=== PATIENT | male | born 1945 | race Caucasian/White ===

== ENCOUNTER 2017-11-28 22:06 | Emergency (ER) | payer MEDICARE, BC ==
[2017-11-28] MEDS: SOD CHLORIDE 0.9% 1,000 ML IV (22:40)
[2017-11-28] MEDS: morphine 2 MG INJ IV (22:40)
[2017-11-28 22:46] LABS: ADD MAN DIFF? NO
[2017-11-28 22:48] LABS: BASOPHILS % 0.4 % (0.0-2.0); EOSINOPHILS # 0.1 10^3/ul (0.0-0.5); EOSINOPHILS % 0.9 % (0.0-7.0); HEMOGLOBIN 12.6 g/dl (14.0-18.0); LYMPHOCYTES # 1.6 10^3/ul (0.8-2.9); LYMPHOCYTES % 16.5 % (15.0-51.0); MEAN CORPUSCULAR HEMOGLOBIN 29.9 pg (29.0-33.0); MEAN CORPUSCULAR HGB CONC 33.2 g/dl (32.0-37.0); MEAN CORPUSCULAR VOLUME 90.3 fl (82.0-101.0); MEAN PLATELET VOLUME 9.9 fl (7.4-10.4); MONOCYTE # 0.9 10^3/ul (0.3-0.9); NEUTROPHIL # 7.1 10^3/ul (1.6-7.5); NEUTROPHILS % 72.6 % (39.0-77.0); PLATELET COUNT 257 10^3/UL (140-415); RED BLOOD COUNT 4.21 10^6/ul (4.70-6.10)
[2017-11-28 22:48] LABS: WHITE BLOOD COUNT 9.7 10^3/ul (4.8-10.8)
[2017-11-28 23:19] LABS: ALANINE AMINOTRANSFERASE 23 IU/L (13-69); ALBUMIN 3.7 g/dl (3.3-4.9); ALBUMIN/GLOBULIN RATIO 1.23; ALKALINE PHOSPHATASE 123 IU/L (42-121); ANION GAP 16 (8-16); ASPARTATE AMINO TRANSFERASE 17 IU/L (15-46); BILIRUBIN,INDIRECT 0.2 mg/dl (0-1.1); BILIRUBIN,TOTAL 0.2 mg/dl (0.2-1.3); BLOOD UREA NITROGEN 19 mg/dl (7-20); CALCIUM 9.5 mg/dl (8.4-10.2); CARBON DIOXIDE 28 mmol/L (21-31); CHLORIDE 107 mmol/L (97-110); CREATININE 0.66 mg/dl (0.61-1.24); GLUCOSE 168 mg/dl (70-220); LIPASE 12 U/L (23-300); POTASSIUM 4.6 mmol/L (3.5-5.1); SODIUM 146 mmol/L (135-144); TOTAL PROTEIN 6.7 g/dl (6.1-8.1)
[2017-11-29 00:27] LABS: ADD UMIC NO; UR ASCORBIC ACID NEGATIVE (NEGATIVE); UR BILIRUBIN (Dip) NEGATIVE (NEGATIVE); UR BLOOD (Dip) NEGATIVE (NEGATIVE); UR CLARITY CLEAR (CLEAR); UR COLOR STRAW (YELLOW); UR GLUCOSE (Dip) NEGATIVE (NEGATIVE); UR KETONES (Dip) NEGATIVE (NEGATIVE); UR LEUKOCYTE ESTERASE (Dip) NEGATIVE Leu/ul (NEGATIVE); UR NITRITE (Dip) NEGATIVE (NEGATIVE); UR SPECIFIC GRAVITY (Dip) 1.009 (1.003-1.030); UR TOTAL PROTEIN (Dip) NEGATIVE (NEGATIVE); UR UROBILINOGEN (Dip) NEGATIVE (NEGATIVE)
== END 2017-11-29 03:08 | disposition home or self-care (01) ==
LOC: E/R 22:06
DX: S09.90XA Unspecified injury of head, initial encounter (principal); I10 Essential (primary) hypertension; E11.9 Type 2 diabetes mellitus without complications; R51 Headache; W18.39XA Other fall on same level, initial encounter; Y92.89 Other specified places as the place of occurrence of the external cause
CPT/HCPCS: 36415; 70450; 71045; 72125; 80053; 81003; 83690; 85025; 93005; 96374; 99285-25

== ENCOUNTER 2017-12-24 21:17 | Inpatient (IN) | payer MEDICARE, BC ==
[2017-12-24] MEDS: SOD CHLORIDE 0.9% 1,000 ML IV (21:44)
[2017-12-24 21:49] LABS: ADD MAN DIFF? NO
[2017-12-24 21:55] LABS: WHITE BLOOD COUNT 6.8 10^3/ul (4.8-10.8)
[2017-12-24 21:55] LABS: BASOPHILS % 0.3 % (0.0-2.0); EOSINOPHILS # 0.1 10^3/ul (0.0-0.5); HEMOGLOBIN 12.3 g/dl (14.0-18.0); LYMPHOCYTES # 1.6 10^3/ul (0.8-2.9); LYMPHOCYTES % 24.1 % (15.0-51.0); MEAN CORPUSCULAR HGB CONC 33.2 g/dl (32.0-37.0); MEAN CORPUSCULAR VOLUME 90.2 fl (82.0-101.0); MEAN PLATELET VOLUME 9.6 fl (7.4-10.4); MONOCYTE # 0.8 10^3/ul (0.3-0.9); MONOCYTES % 12.4 % (0.0-11.0); NEUTROPHIL # 4.2 10^3/ul (1.6-7.5); NEUTROPHILS % 61.5 % (39.0-77.0); PLATELET COUNT 202 10^3/UL (140-415); RED CELL DISTRIBUTION WIDTH 13.8 % (11.5-14.5)
[2017-12-24] MEDS: OLANZAPINE (ODT) 5 MG TAB PO (21:56)
[2017-12-24 22:14] LABS: ALANINE AMINOTRANSFERASE 22 IU/L (13-69); ALBUMIN 3.8 g/dl (3.3-4.9); ALBUMIN/GLOBULIN RATIO 1.18; ALKALINE PHOSPHATASE 76 IU/L (42-121); ANION GAP 16 (8-16); ASPARTATE AMINO TRANSFERASE 19 IU/L (15-46); BILIRUBIN,INDIRECT 0.5 mg/dl (0-1.1); BILIRUBIN,TOTAL 0.5 mg/dl (0.2-1.3); BLOOD UREA NITROGEN 17 mg/dl (7-20); CALCIUM 9.8 mg/dl (8.4-10.2); CARBON DIOXIDE 27 mmol/L (21-31); CHLORIDE 107 mmol/L (97-110); CREATININE 0.72 mg/dl (0.61-1.24); GLUCOSE 97 mg/dl (70-220); POTASSIUM 3.9 mmol/L (3.5-5.1); SODIUM 146 mmol/L (135-144)
[2017-12-24 22:32] LABS: ACETAMINOPHEN < 10.0 ug/ml (10.0-30.0); SALICYLATE < 1.0 mg/dl (5.0-30.0)
[2017-12-24 22:33] LABS: ETHANOL < 10.0 mg/dl
[2017-12-24] MEDS ORDERED: ONDANSETRON 4 MG INJ IV (23:30)
[2017-12-24] MEDS ORDERED: ACETAMINOPHEN 325 MG TAB PO (23:30)
[2017-12-25] MEDS ORDERED: NACL 0.9% 3 ML SYG IV (00:30)
[2017-12-25] MEDS ORDERED: LORAZEPAM 0.5 MG TAB PO (00:30)
[2017-12-25] MEDS ORDERED: ALBUTEROL/IPRATROPIUM (NEB) 3 ML AMP HHN (00:30)
[2017-12-25] MEDS ORDERED: morphine 2 MG INJ IV (00:30)
[2017-12-25] MEDS ORDERED: ONDANSETRON 4 MG INJ IV (00:30)
[2017-12-25] MEDS ORDERED: GLUCOSE GEL 15 GRAM TUBE BUCCAL (01:00)
[2017-12-25] MEDS ORDERED: DEXTROSE 50% 50 ML SYRINGE IV ×2 (01:00)
[2017-12-25] MEDS ORDERED: GLUCAGON 1 MG INJ IM (01:00)
[2017-12-25] MEDS ORDERED: GLUCOSE GEL 15 GRAM TUBE PO ×2 (01:00)
[2017-12-25] MEDS: ACCU-CHEK XX (01:37)
[2017-12-25] MEDS: LORAZEPAM 2 MG INJ IV (03:12)
[2017-12-25 05:37] LABS: ADD MAN DIFF? NO
[2017-12-25 05:45] LABS: WHITE BLOOD COUNT 8.2 10^3/ul (4.8-10.8)
[2017-12-25 05:45] LABS: BASOPHILS % 0.4 % (0.0-2.0); EOSINOPHILS # 0.2 10^3/ul (0.0-0.5); EOSINOPHILS % 2.1 % (0.0-7.0); HEMATOCRIT 37.7 % (42.0-52.0); HEMOGLOBIN 12.4 g/dl (14.0-18.0); LYMPHOCYTES # 2.6 10^3/ul (0.8-2.9); MEAN CORPUSCULAR HEMOGLOBIN 30.3 pg (29.0-33.0); MEAN CORPUSCULAR HGB CONC 32.9 g/dl (32.0-37.0); MEAN CORPUSCULAR VOLUME 92.2 fl (82.0-101.0); MEAN PLATELET VOLUME 10.6 fl (7.4-10.4); MONOCYTE # 1.2 10^3/ul (0.3-0.9); MONOCYTES % 14.1 % (0.0-11.0); NEUTROPHIL # 4.3 10^3/ul (1.6-7.5); NEUTROPHILS % 51.7 % (39.0-77.0); PLATELET COUNT 177 10^3/UL (140-415); RED BLOOD COUNT 4.09 10^6/ul (4.70-6.10); RED CELL DISTRIBUTION WIDTH 13.9 % (11.5-14.5)
[2017-12-25 06:07] LABS: ALANINE AMINOTRANSFERASE 19 IU/L (13-69); ALBUMIN 3.8 g/dl (3.3-4.9); ALBUMIN/GLOBULIN RATIO 1.08; ALKALINE PHOSPHATASE 77 IU/L (42-121); ANION GAP 20 (8-16); ASPARTATE AMINO TRANSFERASE 23 IU/L (15-46); BILIRUBIN,INDIRECT 0.6 mg/dl (0-1.1); BILIRUBIN,TOTAL 0.6 mg/dl (0.2-1.3); BLOOD UREA NITROGEN 13 mg/dl (7-20); CALCIUM 9.6 mg/dl (8.4-10.2); CARBON DIOXIDE 25 mmol/L (21-31); CHLORIDE 110 mmol/L (97-110); CREATININE 0.67 mg/dl (0.61-1.24); GLUCOSE 89 mg/dl (70-220); POTASSIUM 3.5 mmol/L (3.5-5.1); SODIUM 151 mmol/L (135-144); TOTAL PROTEIN 7.3 g/dl (6.1-8.1)
[2017-12-25] MEDS: INSULIN ASPART [NOVOLOG] 3 ML PEN SC ×4 (08:15→22:00)
[2017-12-25] MEDS: LEVETIRACETAM 750 MG TAB PO (08:56)
[2017-12-25] MEDS: ESCITALOPRAM 10 MG TAB PO (08:56)
[2017-12-25] MEDS: CLOBETASOL 0.05% 15 GM CR TOP ×2 (08:57→21:40)
[2017-12-25] MEDS: SERTRALINE 50 MG TAB PO (08:57)
[2017-12-25] MEDS: INSULIN GLARGINE [LANtus] 3 ML PEN SC (08:58)
[2017-12-25] MEDS ORDERED: SERTRALINE 50 MG TAB PO (09:00)
[2017-12-25] MEDS: LEVETIRACETAM (100 MG/ML) 5ML CUP PO ×2 (09:54→21:35)
[2017-12-25] MEDS ORDERED: DIPHENHYDRAMINE 50 MG INJ IV (11:30)
[2017-12-25 12:20] LABS: ADD UMIC NO; UR ASCORBIC ACID NEGATIVE (NEGATIVE); UR BILIRUBIN (Dip) NEGATIVE (NEGATIVE); UR BLOOD (Dip) NEGATIVE (NEGATIVE); UR CLARITY CLEAR (CLEAR); UR COLOR YELLOW (YELLOW); UR GLUCOSE (Dip) NEGATIVE (NEGATIVE); UR KETONES (Dip) NEGATIVE (NEGATIVE); UR LEUKOCYTE ESTERASE (Dip) NEGATIVE Leu/ul (NEGATIVE); UR NITRITE (Dip) NEGATIVE (NEGATIVE); UR TOTAL PROTEIN (Dip) NEGATIVE (NEGATIVE); UR UROBILINOGEN (Dip) NEGATIVE (NEGATIVE)
[2017-12-25 12:34] LABS: CANNABINOIDS Negative (NEGATIVE)
[2017-12-25 12:43] LABS: AMPHETAMINE/METHAMPHETAMINE Negative (NEGATIVE); BARBITURATES Negative (NEGATIVE)
[2017-12-25 12:44] LABS: COCAINE Negative (NEGATIVE)
[2017-12-25 12:45] LABS: BENZODIAZEPINES Positive (NEGATIVE); OPIATES Positive (NEGATIVE)
[2017-12-25] MEDS: ONDANSETRON 4 MG TAB PO ×2 (13:18→21:34)
[2017-12-25] MEDS: ZINC SULFATE 220 MG CAP PO (13:18)
[2017-12-25] MEDS: ASCORBIC ACID 500 MG TAB PO ×2 (13:18→21:00)
[2017-12-25] MEDS: ACETAMINOPHEN 325 MG TAB PO ×2 (17:03→21:35)
[2017-12-25] MEDS: COLLAGENASE 5 GM (UD JAR) TOP (17:35)
[2017-12-25] MEDS: ATORVASTATIN 40 MG TAB PO (21:34)
[2017-12-25] MEDS: PREGABALIN 25 MG CAP PO (22:36)
[2017-12-26] MEDS: ACCU-CHEK XX (02:00)
[2017-12-26] MEDS: ONDANSETRON 4 MG TAB PO ×3 (05:35→22:00)
[2017-12-26 06:29] LABS: ADD MAN DIFF? NO
[2017-12-26 06:41] LABS: WHITE BLOOD COUNT 6.1 10^3/ul (4.8-10.8)
[2017-12-26 06:41] LABS: BASOPHILS % 0.5 % (0.0-2.0); EOSINOPHILS # 0.2 10^3/ul (0.0-0.5); EOSINOPHILS % 3.1 % (0.0-7.0); HEMATOCRIT 36.6 % (42.0-52.0); HEMOGLOBIN 12.2 g/dl (14.0-18.0); LYMPHOCYTES # 1.7 10^3/ul (0.8-2.9); LYMPHOCYTES % 28.1 % (15.0-51.0); MEAN CORPUSCULAR HEMOGLOBIN 30.2 pg (29.0-33.0); MEAN CORPUSCULAR HGB CONC 33.3 g/dl (32.0-37.0); MEAN CORPUSCULAR VOLUME 90.6 fl (82.0-101.0); MEAN PLATELET VOLUME 10.4 fl (7.4-10.4); MONOCYTE # 0.8 10^3/ul (0.3-0.9); MONOCYTES % 12.6 % (0.0-11.0); NEUTROPHIL # 3.4 10^3/ul (1.6-7.5); NEUTROPHILS % 55.2 % (39.0-77.0); PLATELET COUNT 180 10^3/UL (140-415); RED BLOOD COUNT 4.04 10^6/ul (4.70-6.10); RED CELL DISTRIBUTION WIDTH 13.8 % (11.5-14.5)
[2017-12-26 07:20] LABS: ALBUMIN 3.2 g/dl (3.3-4.9)
[2017-12-26 07:23] LABS: BLOOD UREA NITROGEN 10 mg/dl (7-20); CALCIUM 9.3 mg/dl (8.4-10.2); CARBON DIOXIDE 27 mmol/L (21-31); CHLORIDE 110 mmol/L (97-110); CREATININE 0.67 mg/dl (0.61-1.24); GLUCOSE 99 mg/dl (70-220); PHOSPHORUS 4.2 mg/dl (2.5-4.9); POTASSIUM 3.6 mmol/L (3.5-5.1)
[2017-12-26 07:57] LABS: ANION GAP 11 (8-16); MAGNESIUM 1.1 mg/dl (1.7-2.5); SODIUM 144 mmol/L (135-144)
[2017-12-26] MEDS: LEVETIRACETAM (100 MG/ML) 5ML CUP PO ×2 (08:04→21:14)
[2017-12-26] MEDS: CLOBETASOL 0.05% 15 GM CR TOP ×2 (08:04→21:17)
[2017-12-26] MEDS: ESCITALOPRAM 10 MG TAB PO (08:05)
[2017-12-26] MEDS: ASCORBIC ACID 500 MG TAB PO ×2 (08:05→21:14)
[2017-12-26] MEDS: PREGABALIN 25 MG CAP PO ×2 (08:05→21:14)
[2017-12-26] MEDS: ZINC SULFATE 220 MG CAP PO (08:05)
[2017-12-26] MEDS: INSULIN ASPART [NOVOLOG] 3 ML PEN SC ×4 (08:05→21:00)
[2017-12-26] MEDS: INSULIN GLARGINE [LANtus] 3 ML PEN SC (08:06)
[2017-12-26] MEDS: COLLAGENASE 5 GM (UD JAR) TOP (08:09)
[2017-12-26] MEDS: ACETAMINOPHEN 1000MG/100ML IV 100 ML IVPB (11:40)
[2017-12-26] MEDS ORDERED: MAGNESIUM SULFATE 3 GM in DEXTROSE 5% 100 ML IVPB (12:30)
[2017-12-26] MEDS: MAGNESIUM SULFATE 1 GM/D5W 100 ML IVPB ×3 (12:36→15:46)
[2017-12-26] MEDS: SENNA TAB PO (21:00)
[2017-12-26] MEDS: DOCUSATE SODIUM 100 MG CAP PO (21:14)
[2017-12-26] MEDS: ATORVASTATIN 40 MG TAB PO (21:14)
[2017-12-27] MEDS: ACCU-CHEK XX ×2 (00:02→21:50)
[2017-12-27] MEDS: ONDANSETRON 4 MG TAB PO ×3 (06:00→21:41)
[2017-12-27] MEDS: ACETAMINOPHEN 1000MG/100ML IV 100 ML IVPB ×3 (06:44→22:27)
[2017-12-27 07:25] LABS: ADD MAN DIFF? NO
[2017-12-27 07:30] LABS: BASOPHILS % 0.4 % (0.0-2.0); EOSINOPHILS # 0.1 10^3/ul (0.0-0.5); EOSINOPHILS % 1.4 % (0.0-7.0); HEMATOCRIT 40.6 % (42.0-52.0); HEMOGLOBIN 13.6 g/dl (14.0-18.0); LYMPHOCYTES # 2.1 10^3/ul (0.8-2.9); LYMPHOCYTES % 24.2 % (15.0-51.0); MEAN CORPUSCULAR HEMOGLOBIN 30.2 pg (29.0-33.0); MEAN CORPUSCULAR HGB CONC 33.5 g/dl (32.0-37.0); MEAN PLATELET VOLUME 10.2 fl (7.4-10.4); MONOCYTE # 1.1 10^3/ul (0.3-0.9); MONOCYTES % 13.2 % (0.0-11.0); NEUTROPHIL # 5.2 10^3/ul (1.6-7.5); NEUTROPHILS % 60.6 % (39.0-77.0); PLATELET COUNT 194 10^3/UL (140-415); RED BLOOD COUNT 4.51 10^6/ul (4.70-6.10); RED CELL DISTRIBUTION WIDTH 14.1 % (11.5-14.5)
[2017-12-27 07:30] LABS: WHITE BLOOD COUNT 8.6 10^3/ul (4.8-10.8)
[2017-12-27 07:51] LABS: MAGNESIUM 1.5 mg/dl (1.7-2.5)
[2017-12-27 07:51] LABS: PHOSPHORUS 4.1 mg/dl (2.5-4.9)
[2017-12-27] MEDS: INSULIN GLARGINE [LANtus] 3 ML PEN SC (08:00)
[2017-12-27] MEDS: INSULIN ASPART [NOVOLOG] 3 ML PEN SC ×4 (08:15→21:00)
[2017-12-27] MEDS: ESCITALOPRAM 10 MG TAB PO (08:21)
[2017-12-27] MEDS: PREGABALIN 25 MG CAP PO ×2 (08:21→21:43)
[2017-12-27] MEDS: ZINC SULFATE 220 MG CAP PO (08:21)
[2017-12-27] MEDS: ASCORBIC ACID 500 MG TAB PO ×2 (08:22→21:42)
[2017-12-27] MEDS: DOCUSATE SODIUM 100 MG CAP PO ×2 (08:22→21:00)
[2017-12-27] MEDS: SENNA TAB PO ×2 (08:22→21:00)
[2017-12-27] MEDS: LEVETIRACETAM (100 MG/ML) 5ML CUP PO ×2 (08:23→21:41)
[2017-12-27] MEDS: CLOBETASOL 0.05% 15 GM CR TOP ×2 (08:28→21:45)
[2017-12-27] MEDS: COLLAGENASE 5 GM (UD JAR) TOP (08:28)
[2017-12-27 11:03] LABS: ANION GAP 14 (8-16); BLOOD UREA NITROGEN 8 mg/dl (7-20); CALCIUM 9.3 mg/dl (8.4-10.2); CARBON DIOXIDE 22 mmol/L (21-31); CHLORIDE 111 mmol/L (97-110); CREATININE 0.71 mg/dl (0.61-1.24); GLUCOSE 148 mg/dl (70-220); POTASSIUM 3.5 mmol/L (3.5-5.1); SODIUM 143 mmol/L (135-144)
[2017-12-27] MEDS: MAGNESIUM SULFATE 2 GM/50 ML 50 ML IVPB (11:56)
[2017-12-27] MEDS: MUPIROCIN 2% 22 GM OINT TOP ×2 (11:56→21:45)
[2017-12-27] MEDS: ATORVASTATIN 40 MG TAB PO (21:42)
[2017-12-28] MEDS: ACETAMINOPHEN 1000MG/100ML IV 100 ML IVPB (04:57)
[2017-12-28 06:24] LABS: ADD MAN DIFF? NO
[2017-12-28 06:35] LABS: WHITE BLOOD COUNT 7.9 10^3/ul (4.8-10.8)
[2017-12-28 06:35] LABS: BASOPHIL # 0.1 10^3/ul (0.0-0.1); BASOPHILS % 0.6 % (0.0-2.0); EOSINOPHILS # 0.2 10^3/ul (0.0-0.5); EOSINOPHILS % 2.9 % (0.0-7.0); HEMOGLOBIN 13.2 g/dl (14.0-18.0); LYMPHOCYTES # 2.2 10^3/ul (0.8-2.9); LYMPHOCYTES % 28.2 % (15.0-51.0); MEAN CORPUSCULAR HEMOGLOBIN 29.9 pg (29.0-33.0); MEAN CORPUSCULAR VOLUME 90.7 fl (82.0-101.0); MEAN PLATELET VOLUME 10.3 fl (7.4-10.4); MONOCYTES % 12.8 % (0.0-11.0); NEUTROPHIL # 4.3 10^3/ul (1.6-7.5); NEUTROPHILS % 54.9 % (39.0-77.0); PLATELET COUNT 177 10^3/UL (140-415); POSITIVE DIFF @See below; RED BLOOD COUNT 4.41 10^6/ul (4.70-6.10)
[2017-12-28] MEDS: ONDANSETRON 4 MG TAB PO ×3 (06:50→21:27)
[2017-12-28 07:15] LABS: MAGNESIUM 1.5 mg/dl (1.7-2.5)
[2017-12-28] MEDS: INSULIN ASPART [NOVOLOG] 3 ML PEN SC ×4 (08:15→21:00)
[2017-12-28] MEDS: DOCUSATE SODIUM 100 MG CAP PO ×2 (08:35→21:21)
[2017-12-28] MEDS: LEVETIRACETAM (100 MG/ML) 5ML CUP PO ×2 (08:35→21:20)
[2017-12-28] MEDS: ASCORBIC ACID 500 MG TAB PO ×2 (08:35→21:20)
[2017-12-28] MEDS: ESCITALOPRAM 10 MG TAB PO (08:35)
[2017-12-28] MEDS: SENNA TAB PO ×2 (08:36→21:20)
[2017-12-28] MEDS: ZINC SULFATE 220 MG CAP PO (08:36)
[2017-12-28] MEDS: PREGABALIN 25 MG CAP PO ×2 (08:38→21:21)
[2017-12-28] MEDS: INSULIN GLARGINE [LANtus] 3 ML PEN SC (08:40)
[2017-12-28] MEDS: MUPIROCIN 2% 22 GM OINT TOP ×2 (08:42→21:21)
[2017-12-28] MEDS: COLLAGENASE 5 GM (UD JAR) TOP (08:42)
[2017-12-28] MEDS: CLOBETASOL 0.05% 15 GM CR TOP ×2 (08:43→21:22)
[2017-12-28] MEDS: ACETAMINOPHEN 325 MG TAB PO ×3 (15:06→22:53)
[2017-12-28] MEDS: ATORVASTATIN 40 MG TAB PO (21:21)
[2017-12-29] MEDS: ACCU-CHEK XX (02:00)
[2017-12-29] MEDS: ONDANSETRON 4 MG TAB PO ×2 (05:34→15:20)
[2017-12-29] MEDS: HYDROCODONE/APAP (5/325) TAB PO ×3 (05:35→22:51)
[2017-12-29 06:18] LABS: ADD MAN DIFF? NO
[2017-12-29 06:29] LABS: BASOPHILS % 0.4 % (0.0-2.0); EOSINOPHILS # 0.2 10^3/ul (0.0-0.5); HEMATOCRIT 40.6 % (42.0-52.0); HEMOGLOBIN 13.6 g/dl (14.0-18.0); LYMPHOCYTES # 2.2 10^3/ul (0.8-2.9); LYMPHOCYTES % 26.9 % (15.0-51.0); MEAN CORPUSCULAR HEMOGLOBIN 30.5 pg (29.0-33.0); MEAN CORPUSCULAR HGB CONC 33.5 g/dl (32.0-37.0); MEAN PLATELET VOLUME 10.8 fl (7.4-10.4); MONOCYTE # 1.1 10^3/ul (0.3-0.9); MONOCYTES % 13.5 % (0.0-11.0); NEUTROPHIL # 4.5 10^3/ul (1.6-7.5); NEUTROPHILS % 55.8 % (39.0-77.0); PLATELET COUNT 167 10^3/UL (140-415); RED BLOOD COUNT 4.46 10^6/ul (4.70-6.10)
[2017-12-29] MEDS: INSULIN ASPART [NOVOLOG] 3 ML PEN SC ×4 (08:15→21:00)
[2017-12-29] MEDS: LEVETIRACETAM (100 MG/ML) 5ML CUP PO ×2 (08:18→21:01)
[2017-12-29] MEDS: ASCORBIC ACID 500 MG TAB PO ×2 (08:19→21:01)
[2017-12-29] MEDS: COLLAGENASE 5 GM (UD JAR) TOP (08:19)
[2017-12-29] MEDS: ESCITALOPRAM 10 MG TAB PO (08:19)
[2017-12-29] MEDS: ZINC SULFATE 220 MG CAP PO (08:19)
[2017-12-29] MEDS: PREGABALIN 25 MG CAP PO ×2 (08:19→21:01)
[2017-12-29] MEDS: CLOBETASOL 0.05% 15 GM CR TOP ×2 (08:20→21:03)
[2017-12-29] MEDS: MUPIROCIN 2% 22 GM OINT TOP ×2 (08:21→21:02)
[2017-12-29] MEDS: SENNA TAB PO ×2 (08:22→21:01)
[2017-12-29] MEDS: DOCUSATE SODIUM 100 MG CAP PO ×3 (08:22→21:01)
[2017-12-29] MEDS: INSULIN GLARGINE [LANtus] 3 ML PEN SC (08:33)
[2017-12-29] MEDS ORDERED: ONDANSETRON 4 MG TAB PO (15:30)
[2017-12-29] MEDS: ATORVASTATIN 40 MG TAB PO (21:01)
[2017-12-30] MEDS: ACCU-CHEK XX (01:10)
[2017-12-30 06:13] LABS: ADD MAN DIFF? NO
[2017-12-30 06:17] LABS: WHITE BLOOD COUNT 8.1 10^3/ul (4.8-10.8)
[2017-12-30 06:17] LABS: BASOPHIL # 0.1 10^3/ul (0.0-0.1); EOSINOPHILS # 0.3 10^3/ul (0.0-0.5); EOSINOPHILS % 3.1 % (0.0-7.0); HEMATOCRIT 39.5 % (42.0-52.0); HEMOGLOBIN 13.1 g/dl (14.0-18.0); LYMPHOCYTES # 2.3 10^3/ul (0.8-2.9); LYMPHOCYTES % 27.9 % (15.0-51.0); MEAN CORPUSCULAR HEMOGLOBIN 30.2 pg (29.0-33.0); MEAN CORPUSCULAR HGB CONC 33.2 g/dl (32.0-37.0); MEAN PLATELET VOLUME 10.5 fl (7.4-10.4); MONOCYTES % 12.9 % (0.0-11.0); NEUTROPHIL # 4.4 10^3/ul (1.6-7.5); NEUTROPHILS % 54.6 % (39.0-77.0); PLATELET COUNT 142 10^3/UL (140-415); POSITIVE DIFF @See below; RED BLOOD COUNT 4.34 10^6/ul (4.70-6.10)
[2017-12-30] MEDS: HYDROCODONE/APAP (5/325) TAB PO ×3 (06:21→23:58)
[2017-12-30] MEDS: INSULIN ASPART [NOVOLOG] 3 ML PEN SC ×4 (08:15→21:00)
[2017-12-30] MEDS: SENNA TAB PO ×2 (08:31→20:59)
[2017-12-30] MEDS: ESCITALOPRAM 10 MG TAB PO (08:31)
[2017-12-30] MEDS: PREGABALIN 25 MG CAP PO ×2 (08:31→20:59)
[2017-12-30] MEDS: ASCORBIC ACID 500 MG TAB PO ×2 (08:31→20:59)
[2017-12-30] MEDS: ZINC SULFATE 220 MG CAP PO (08:31)
[2017-12-30] MEDS: DOCUSATE SODIUM 100 MG CAP PO ×2 (08:31→20:59)
[2017-12-30] MEDS: LEVETIRACETAM (100 MG/ML) 5ML CUP PO ×2 (08:32→20:59)
[2017-12-30] MEDS: COLLAGENASE 5 GM (UD JAR) TOP (08:32)
[2017-12-30 08:38] LABS: BAND NEUTROPHILS #M 0.1 10^3/ul (0.0-0.6); BAND NEUTROPHILS % (M) 2 % (0-4); EOSINOPHILS % (M) 4 % (0-7); LYMPHOCYTES #M 1.9 10^3/ul (0.8-2.9); LYMPHOCYTES % (M) 24 % (15-51); MONOCYTE #M 0.4 10^3/ul (0.3-0.9); MONOCYTES % (M) 6 % (0-11); PLATELET ESTIMATE NORMAL; POLYCHROMASIA 1+ (0-0); REACTIVE LYMPHOCYTES #M 0.1 10^3/ul (0.0-0.0); REACTIVE LYMPHOCYTES% (M) 2 % (0-0); SEGMENTED NEUTROPHILS (M) % 62 % (39-77)
[2017-12-30] MEDS: MUPIROCIN 2% 22 GM OINT TOP ×2 (09:42→20:58)
[2017-12-30] MEDS: INSULIN GLARGINE [LANtus] 3 ML PEN SC (09:45)
[2017-12-30] MEDS: CLOBETASOL 0.05% 15 GM CR TOP ×2 (10:25→20:58)
[2017-12-30] MEDS: ATORVASTATIN 40 MG TAB PO (20:59)
[2017-12-31] MEDS: ACCU-CHEK XX (01:10)
[2017-12-31] MEDS: NAPROXEN 500 MG TAB PO (04:35)
[2017-12-31 05:57] LABS: ADD MAN DIFF? NO
[2017-12-31 06:00] LABS: WHITE BLOOD COUNT 7.8 10^3/ul (4.8-10.8)
[2017-12-31 06:00] LABS: BASOPHIL # 0.1 10^3/ul (0.0-0.1); BASOPHILS % 0.8 % (0.0-2.0); EOSINOPHILS # 0.2 10^3/ul (0.0-0.5); EOSINOPHILS % 2.7 % (0.0-7.0); HEMATOCRIT 37.1 % (42.0-52.0); HEMOGLOBIN 12.5 g/dl (14.0-18.0); LYMPHOCYTES # 2.1 10^3/ul (0.8-2.9); LYMPHOCYTES % 26.5 % (15.0-51.0); MEAN CORPUSCULAR HEMOGLOBIN 30.6 pg (29.0-33.0); MEAN CORPUSCULAR HGB CONC 33.7 g/dl (32.0-37.0); MEAN CORPUSCULAR VOLUME 90.7 fl (82.0-101.0); MEAN PLATELET VOLUME 10.7 fl (7.4-10.4); MONOCYTES % 13.4 % (0.0-11.0); NEUTROPHIL # 4.4 10^3/ul (1.6-7.5); PLATELET COUNT 140 10^3/UL (140-415); POSITIVE DIFF @See below; RED BLOOD COUNT 4.09 10^6/ul (4.70-6.10); RED CELL DISTRIBUTION WIDTH 14.1 % (11.5-14.5)
[2017-12-31] MEDS: INSULIN ASPART [NOVOLOG] 3 ML PEN SC ×4 (08:15→20:52)
[2017-12-31] MEDS: LEVETIRACETAM (100 MG/ML) 5ML CUP PO ×2 (08:51→20:36)
[2017-12-31] MEDS: MUPIROCIN 2% 22 GM OINT TOP ×2 (08:51→20:35)
[2017-12-31] MEDS: COLLAGENASE 5 GM (UD JAR) TOP (08:51)
[2017-12-31] MEDS: INSULIN GLARGINE [LANtus] 3 ML PEN SC (08:53)
[2017-12-31] MEDS: HYDROCODONE/APAP (5/325) TAB PO (08:53)
[2017-12-31] MEDS: ZINC SULFATE 220 MG CAP PO (08:54)
[2017-12-31] MEDS: ESCITALOPRAM 10 MG TAB PO (08:54)
[2017-12-31] MEDS: DEXAMETHASONE 2 MG TAB PO (08:54)
[2017-12-31] MEDS: ASCORBIC ACID 500 MG TAB PO ×2 (08:54→20:34)
[2017-12-31] MEDS: DOCUSATE SODIUM 100 MG CAP PO ×2 (08:54→20:41)
[2017-12-31] MEDS: SENNA TAB PO ×2 (08:54→20:34)
[2017-12-31] MEDS: PREGABALIN 25 MG CAP PO ×2 (08:54→20:35)
[2017-12-31] MEDS: CLOBETASOL 0.05% 15 GM CR TOP ×2 (08:55→20:36)
[2017-12-31] MEDS ORDERED: HYDROCODONE/APAP (5/325) TAB PO (11:00)
[2017-12-31] MEDS: DEXAMETHASONE 1 MG TAB PO ×2 (13:10→20:34)
[2017-12-31] MEDS: ATORVASTATIN 40 MG TAB PO (20:34)
== END 2017-12-31 22:05 | DRG 92 ==
LOC: MS2 23:23 → E/R 21:17
DX: G92 Toxic encephalopathy (principal); E87.0 Hyperosmolality and hypernatremia; I69.354 Hemiplegia and hemiparesis following cerebral infarction affecting left non-dominant side; C71.9 Malignant neoplasm of brain, unspecified; I10 Essential (primary) hypertension; E11.9 Type 2 diabetes mellitus without complications; G40.909 Epilepsy, unspecified, not intractable, without status epilepticus; F06.30 Mood disorder due to known physiological condition, unspecified; E78.00 Pure hypercholesterolemia, unspecified; F19.959 Other psychoactive substance use, unspecified with psychoactive substance-induced psychotic disorder, unspecified; T38.0X5A Adverse effect of glucocorticoids and synthetic analogues, initial encounter; T40.2X5A Adverse effect of other opioids, initial encounter; R45.1 Restlessness and agitation; Z79.4 Long term (current) use of insulin; Z88.2 Allergy status to sulfonamides; Z92.3 Personal history of irradiation
CPT/HCPCS: 36415; 70450; 80048; 80053; 80307; 81003; 82040; 82962; 83735; 84100; 85025; 87081; 97110; 97162; 97530; 99285-25

== ENCOUNTER 2017-12-31 10:15 | Inpatient (IN) | payer MEDICARE, BC ==
[2018-01-01] MEDS ORDERED: DEXTROSE 50% 50 ML SYRINGE IV ×2 (02:00)
[2018-01-01] MEDS ORDERED: GLUCAGON 1 MG INJ IM (02:00)
[2018-01-01] MEDS: ACCU-CHEK XX (02:00)
[2018-01-01] MEDS ORDERED: GLUCOSE GEL 15 GRAM TUBE BUCCAL (02:00)
[2018-01-01] MEDS ORDERED: GLUCOSE GEL 15 GRAM TUBE PO ×2 (02:00)
[2018-01-01] MEDS ORDERED: ONDANSETRON 4 MG INJ IV (02:00)
[2018-01-01] MEDS: ONDANSETRON 4 MG TAB PO (04:43)
[2018-01-01] MEDS: HYDROCODONE/APAP (5/325) TAB PO ×2 (04:44→14:05)
[2018-01-01] MEDS: ALBUTEROL 0.083% (NEB) 2.5 MG/3 ML AMP HHN ×3 (05:00→12:50)
[2018-01-01 05:28] LABS: ADD UMIC YES; UR ASCORBIC ACID 40 mg/dL (NEGATIVE); UR BACTERIA FEW /HPF (NONE SEEN); UR BILIRUBIN (Dip) NEGATIVE (NEGATIVE); UR BLOOD (Dip) NEGATIVE (NEGATIVE); UR CLARITY SLIGHTLY CLOUDY (CLEAR); UR COLOR YELLOW (YELLOW); UR GLUCOSE (Dip) NEGATIVE (NEGATIVE); UR KETONES (Dip) TRACE mg/dL (NEGATIVE); UR LEUKOCYTE ESTERASE (Dip) 2+ Leu/ul (NEGATIVE); UR MUCUS FEW /HPF (NONE SEEN); UR NITRITE (Dip) NEGATIVE (NEGATIVE); UR RBC 4 /HPF (0-5); UR SPECIFIC GRAVITY (Dip) 1.028 (1.003-1.030); UR TOTAL PROTEIN (Dip) NEGATIVE (NEGATIVE); UR UROBILINOGEN (Dip) 1+ mg/dL (NEGATIVE); UR WBC 66 /HPF (0-5)
[2018-01-01] MEDS: DEXAMETHASONE 1 MG TAB PO ×2 (06:26→18:30)
[2018-01-01 06:34] LABS: ADD MAN DIFF? NO
[2018-01-01 06:46] LABS: BASOPHILS % 0.2 % (0.0-2.0); EOSINOPHILS # 0.1 10^3/ul (0.0-0.5); EOSINOPHILS % 0.5 % (0.0-7.0); HEMATOCRIT 38.3 % (42.0-52.0); HEMOGLOBIN 12.9 g/dl (14.0-18.0); LYMPHOCYTES # 2.3 10^3/ul (0.8-2.9); LYMPHOCYTES % 24.6 % (15.0-51.0); MEAN CORPUSCULAR HEMOGLOBIN 30.1 pg (29.0-33.0); MEAN CORPUSCULAR HGB CONC 33.7 g/dl (32.0-37.0); MEAN CORPUSCULAR VOLUME 89.3 fl (82.0-101.0); MEAN PLATELET VOLUME 10.8 fl (7.4-10.4); MONOCYTE # 1.1 10^3/ul (0.3-0.9); MONOCYTES % 12.1 % (0.0-11.0); NEUTROPHIL # 5.8 10^3/ul (1.6-7.5); NEUTROPHILS % 62.1 % (39.0-77.0); PLATELET COUNT 157 10^3/UL (140-415); POSITIVE DIFF @See below; RED BLOOD COUNT 4.29 10^6/ul (4.70-6.10); RED CELL DISTRIBUTION WIDTH 13.9 % (11.5-14.5)
[2018-01-01 06:46] LABS: WHITE BLOOD COUNT 9.3 10^3/ul (4.8-10.8)
[2018-01-01 07:04] LABS: ALANINE AMINOTRANSFERASE 21 IU/L (13-69); ALBUMIN 3.3 g/dl (3.3-4.9); ALKALINE PHOSPHATASE 76 IU/L (42-121); ANION GAP 10 (8-16); ASPARTATE AMINO TRANSFERASE 17 IU/L (15-46); BILIRUBIN,INDIRECT 0.6 mg/dl (0-1.1); BILIRUBIN,TOTAL 0.6 mg/dl (0.2-1.3); BLOOD UREA NITROGEN 13 mg/dl (7-20); CALCIUM 9.1 mg/dl (8.4-10.2); CARBON DIOXIDE 24 mmol/L (21-31); CHLORIDE 111 mmol/L (97-110); CREATININE 0.66 mg/dl (0.61-1.24); GLUCOSE 127 mg/dl (70-220); POTASSIUM 3.5 mmol/L (3.5-5.1); SODIUM 141 mmol/L (135-144); TOTAL PROTEIN 6.3 g/dl (6.1-8.1)
[2018-01-01] MEDS ORDERED: ACCU-CHEK XX (07:05)
[2018-01-01] MEDS: INSULIN ASPART [NOVOLOG] 3 ML PEN SC ×4 (07:35→20:53)
[2018-01-01] MEDS: INSULIN GLARGINE [LANtus] 3 ML PEN SC (08:19)
[2018-01-01] MEDS: FOLIC ACID 1 MG TAB PO (08:21)
[2018-01-01] MEDS: DOCUSATE SODIUM 100 MG CAP PO ×2 (08:21→20:53)
[2018-01-01] MEDS: ASCORBIC ACID 500 MG TAB PO ×2 (08:21→20:32)
[2018-01-01] MEDS: ESCITALOPRAM 10 MG TAB PO (08:21)
[2018-01-01] MEDS: PREGABALIN 25 MG CAP PO ×2 (08:21→20:31)
[2018-01-01] MEDS: SENNA TAB PO ×2 (08:23→20:53)
[2018-01-01] MEDS: MULTIVITAMINS THERAPEUTIC TAB PO (08:23)
[2018-01-01] MEDS ORDERED: ASCORBIC ACID 500 MG TAB.CHEW PO (09:00)
[2018-01-01] MEDS: ZINC SULFATE 220 MG CAP PO (09:04)
[2018-01-01] MEDS ORDERED: PENDING SANTYL ORDER FOR WOUND CARE XX (09:30)
[2018-01-01 09:44] LABS: ANISOCYTOSIS 1+ (0-0); BAND NEUTROPHILS #M 0.1 10^3/ul (0.0-0.6); BAND NEUTROPHILS % (M) 2 % (0-4); GIANT THROMBO% (M) 1 % (0-0); LYMPHOCYTES #M 1.9 10^3/ul (0.8-2.9); LYMPHOCYTES % (M) 21 % (15-51); MONOCYTE #M 0.8 10^3/ul (0.3-0.9); MONOCYTES % (M) 9 % (0-11); PLATELET ESTIMATE NORMAL; POIKILOCYTOSIS 2+ (0-0); POLYCHROMASIA 3+ (0-0); REACTIVE LYMPHOCYTES #M 0.3 10^3/ul (0.0-0.0); REACTIVE LYMPHOCYTES% (M) 4 % (0-0); SEGMENTED NEUTROPHILS (M) % 64 % (39-77); SMUDGE%M 5 % (0-0)
[2018-01-01] MEDS: LEVETIRACETAM (100 MG/ML) 5ML CUP PO ×2 (14:00→20:31)
[2018-01-01] MEDS: BUSPIRONE 5 MG TAB PO ×2 (14:06→20:32)
[2018-01-01] MEDS: CLOBETASOL 0.05% 15 GM CR TOP ×2 (14:17→20:38)
[2018-01-01] MEDS ORDERED: ALBUTEROL 0.083% (NEB) 2.5 MG/3 ML AMP HHN (15:30)
[2018-01-01] MEDS: LORAZEPAM 0.5 MG TAB PO (18:37)
[2018-01-01] MEDS: ATORVASTATIN 40 MG TAB PO (20:42)
[2018-01-02] MEDS: ACCU-CHEK XX (02:00)
[2018-01-02] MEDS: HYDROCODONE/APAP (5/325) TAB PO (02:32)
[2018-01-02] MEDS: LORAZEPAM 0.5 MG TAB PO (03:01)
[2018-01-02] MEDS: DEXAMETHASONE 1 MG TAB PO ×2 (05:41→17:50)
[2018-01-02] MEDS: INSULIN ASPART [NOVOLOG] 3 ML PEN SC ×4 (07:35→21:00)
[2018-01-02] MEDS: INSULIN GLARGINE [LANtus] 3 ML PEN SC (07:54)
[2018-01-02] MEDS: SENNA TAB PO ×2 (08:07→21:00)
[2018-01-02] MEDS: BUSPIRONE 5 MG TAB PO ×2 (08:08→21:08)
[2018-01-02] MEDS: MULTIVITAMINS THERAPEUTIC TAB PO (08:08)
[2018-01-02] MEDS: PREGABALIN 25 MG CAP PO ×2 (08:08→21:08)
[2018-01-02] MEDS: ESCITALOPRAM 10 MG TAB PO (08:08)
[2018-01-02] MEDS: ASCORBIC ACID 500 MG TAB PO ×2 (08:08→21:08)
[2018-01-02] MEDS: ZINC SULFATE 220 MG CAP PO (08:08)
[2018-01-02] MEDS: FOLIC ACID 1 MG TAB PO (08:08)
[2018-01-02] MEDS: DOCUSATE SODIUM 100 MG CAP PO ×2 (08:08→21:00)
[2018-01-02] MEDS: CLOBETASOL 0.05% 15 GM CR TOP ×2 (08:09→21:10)
[2018-01-02] MEDS: LEVETIRACETAM (100 MG/ML) 5ML CUP PO ×2 (08:09→21:09)
[2018-01-02] MEDS: ATORVASTATIN 40 MG TAB PO (21:08)
[2018-01-03] MEDS: ACCU-CHEK XX (01:38)
[2018-01-03] MEDS: DEXAMETHASONE 1 MG TAB PO ×2 (05:56→17:31)
[2018-01-03] MEDS: PANTOPRAZOLE (EC) 40 MG TAB PO (05:56)
[2018-01-03] MEDS: INSULIN ASPART [NOVOLOG] 3 ML PEN SC ×4 (07:35→20:31)
[2018-01-03] MEDS: ESCITALOPRAM 10 MG TAB PO (08:18)
[2018-01-03] MEDS: FOLIC ACID 1 MG TAB PO (08:18)
[2018-01-03] MEDS: ZINC SULFATE 220 MG CAP PO (08:18)
[2018-01-03] MEDS: CLOBETASOL 0.05% 15 GM CR TOP ×2 (08:18→20:32)
[2018-01-03] MEDS: LEVETIRACETAM (100 MG/ML) 5ML CUP PO ×2 (08:18→20:29)
[2018-01-03] MEDS: BUSPIRONE 5 MG TAB PO ×2 (08:19→20:30)
[2018-01-03] MEDS: DOCUSATE SODIUM 100 MG CAP PO ×2 (08:19→20:29)
[2018-01-03] MEDS: PREGABALIN 25 MG CAP PO ×2 (08:19→20:30)
[2018-01-03] MEDS: SENNA TAB PO ×2 (08:19→20:30)
[2018-01-03] MEDS: MULTIVITAMINS THERAPEUTIC TAB PO (08:19)
[2018-01-03] MEDS: ASCORBIC ACID 500 MG TAB PO ×2 (08:19→20:30)
[2018-01-03] MEDS: INSULIN GLARGINE [LANtus] 3 ML PEN SC (08:21)
[2018-01-03] MEDS: ATORVASTATIN 40 MG TAB PO (20:30)
[2018-01-04] MEDS: ACCU-CHEK XX (02:00)
[2018-01-04] MEDS: DEXAMETHASONE 1 MG TAB PO ×2 (06:04→17:33)
[2018-01-04] MEDS: PANTOPRAZOLE (EC) 40 MG TAB PO (06:04)
[2018-01-04] MEDS: INSULIN ASPART [NOVOLOG] 3 ML PEN SC ×4 (07:31→21:11)
[2018-01-04] MEDS: INSULIN GLARGINE [LANtus] 3 ML PEN SC (07:34)
[2018-01-04] MEDS: LEVETIRACETAM (100 MG/ML) 5ML CUP PO ×2 (08:30→21:01)
[2018-01-04] MEDS: DOCUSATE SODIUM 100 MG CAP PO ×2 (08:31→21:03)
[2018-01-04] MEDS: CLOBETASOL 0.05% 15 GM CR TOP ×2 (08:31→21:03)
[2018-01-04] MEDS: PREGABALIN 25 MG CAP PO ×2 (08:31→21:03)
[2018-01-04] MEDS: ESCITALOPRAM 10 MG TAB PO (08:31)
[2018-01-04] MEDS: SENNA TAB PO ×2 (08:31→21:03)
[2018-01-04] MEDS: MULTIVITAMINS THERAPEUTIC TAB PO (08:31)
[2018-01-04] MEDS: ASCORBIC ACID 500 MG TAB PO ×2 (08:31→21:03)
[2018-01-04] MEDS: NAPROXEN 500 MG TAB PO ×2 (08:31→17:47)
[2018-01-04] MEDS: ZINC SULFATE 220 MG CAP PO (08:32)
[2018-01-04] MEDS: FOLIC ACID 1 MG TAB PO (08:32)
[2018-01-04] MEDS: BUSPIRONE 5 MG TAB PO ×2 (08:32→21:03)
[2018-01-04] MEDS ORDERED: HYDROCODONE/APAP (5/325) TAB PO (13:00)
[2018-01-04] MEDS ORDERED: CIPROFLOXACIN 250 MG TAB NGT (14:30)
[2018-01-04] MEDS: CIPROFLOXACIN 250 MG TAB PO (17:33)
[2018-01-04] MEDS: ATORVASTATIN 40 MG TAB PO (21:03)
[2018-01-05] MEDS: ACCU-CHEK XX (02:00)
[2018-01-05] MEDS: NAPROXEN 500 MG TAB PO ×3 (03:01→20:35)
[2018-01-05] MEDS: PANTOPRAZOLE (EC) 40 MG TAB PO (06:13)
[2018-01-05] MEDS: DEXAMETHASONE 1 MG TAB PO ×2 (06:13→17:27)
[2018-01-05] MEDS: CIPROFLOXACIN 250 MG TAB PO ×2 (06:13→17:27)
[2018-01-05] MEDS: INSULIN ASPART [NOVOLOG] 3 ML PEN SC ×4 (07:35→21:00)
[2018-01-05] MEDS: INSULIN GLARGINE [LANtus] 3 ML PEN SC (07:42)
[2018-01-05] MEDS: LEVETIRACETAM (100 MG/ML) 5ML CUP PO ×2 (08:14→20:35)
[2018-01-05] MEDS: CLOBETASOL 0.05% 15 GM CR TOP ×2 (08:15→23:36)
[2018-01-05] MEDS: SENNA TAB PO ×2 (08:15→20:35)
[2018-01-05] MEDS: BUSPIRONE 5 MG TAB PO ×2 (08:15→20:37)
[2018-01-05] MEDS: PREGABALIN 25 MG CAP PO ×2 (08:15→20:35)
[2018-01-05] MEDS: DOCUSATE SODIUM 100 MG CAP PO ×2 (08:15→20:35)
[2018-01-05] MEDS: ACETAMINOPHEN 325 MG TAB PO (08:15)
[2018-01-05] MEDS: ESCITALOPRAM 10 MG TAB PO (08:15)
[2018-01-05] MEDS: ASCORBIC ACID 500 MG TAB PO ×2 (08:15→20:34)
[2018-01-05] MEDS: FOLIC ACID 1 MG TAB PO (08:15)
[2018-01-05] MEDS: MULTIVITAMINS THERAPEUTIC TAB PO (08:15)
[2018-01-05] MEDS: ZINC SULFATE 220 MG CAP PO (08:15)
[2018-01-05] MEDS: CLOTRIMAZOLE 1% 30 GM CR TOP (17:34)
[2018-01-05] MEDS: ATORVASTATIN 40 MG TAB PO (20:34)
[2018-01-06] MEDS: ACCU-CHEK XX (02:00)
[2018-01-06] MEDS: CIPROFLOXACIN 250 MG TAB PO ×2 (06:02→20:09)
[2018-01-06] MEDS: PANTOPRAZOLE (EC) 40 MG TAB PO (06:02)
[2018-01-06] MEDS: DEXAMETHASONE 1 MG TAB PO ×2 (06:02→20:10)
[2018-01-06] MEDS: NAPROXEN 500 MG TAB PO ×2 (06:05→21:00)
[2018-01-06] MEDS: INSULIN ASPART [NOVOLOG] 3 ML PEN SC ×4 (07:35→20:55)
[2018-01-06] MEDS: INSULIN GLARGINE [LANtus] 3 ML PEN SC (08:40)
[2018-01-06] MEDS: ZINC SULFATE 220 MG CAP PO (08:41)
[2018-01-06] MEDS: MULTIVITAMINS THERAPEUTIC TAB PO (08:41)
[2018-01-06] MEDS: PREGABALIN 25 MG CAP PO ×2 (08:41→20:52)
[2018-01-06] MEDS: ESCITALOPRAM 10 MG TAB PO (08:41)
[2018-01-06] MEDS: FOLIC ACID 1 MG TAB PO (08:41)
[2018-01-06] MEDS: DOCUSATE SODIUM 100 MG CAP PO ×2 (08:41→20:53)
[2018-01-06] MEDS: SENNA TAB PO ×2 (08:41→20:52)
[2018-01-06] MEDS: ASCORBIC ACID 500 MG TAB PO ×2 (08:41→20:52)
[2018-01-06] MEDS: LEVETIRACETAM (100 MG/ML) 5ML CUP PO ×2 (08:41→20:53)
[2018-01-06] MEDS: CLOBETASOL 0.05% 15 GM CR TOP ×2 (09:00→23:14)
[2018-01-06] MEDS: BUSPIRONE 5 MG TAB PO ×2 (09:00→20:53)
[2018-01-06] MEDS: COLLAGENASE 5 GM (UD JAR) TOP (12:02)
[2018-01-06] MEDS: CLOTRIMAZOLE 1% 30 GM CR TOP (12:02)
[2018-01-06] MEDS: ACETAMINOPHEN 325 MG TAB PO (14:35)
[2018-01-06] MEDS: ATORVASTATIN 40 MG TAB PO (20:52)
[2018-01-07] MEDS: ACETAMINOPHEN 325 MG TAB PO ×3 (00:40→17:33)
[2018-01-07] MEDS: ACCU-CHEK XX (02:00)
[2018-01-07] MEDS: CIPROFLOXACIN 250 MG TAB PO (06:00)
[2018-01-07] MEDS: PANTOPRAZOLE (EC) 40 MG TAB PO (06:00)
[2018-01-07] MEDS: DEXAMETHASONE 1 MG TAB PO ×2 (06:00→17:33)
[2018-01-07] MEDS: NAPROXEN 500 MG TAB PO ×2 (06:00→20:58)
[2018-01-07] MEDS: INSULIN ASPART [NOVOLOG] 3 ML PEN SC ×5 (07:34→21:00)
[2018-01-07] MEDS: INSULIN GLARGINE [LANtus] 3 ML PEN SC (07:35)
[2018-01-07 07:49] LABS: HEMOGLOBIN A1C 6.6 % (0-5.9)
[2018-01-07] MEDS: CLOBETASOL 0.05% 15 GM CR TOP ×2 (08:43→20:59)
[2018-01-07] MEDS: COLLAGENASE 5 GM (UD JAR) TOP (08:43)
[2018-01-07] MEDS: CLOTRIMAZOLE 1% 30 GM CR TOP (08:43)
[2018-01-07] MEDS: LEVETIRACETAM (100 MG/ML) 5ML CUP PO ×2 (08:43→20:55)
[2018-01-07] MEDS: MULTIVITAMINS THERAPEUTIC TAB PO (08:44)
[2018-01-07] MEDS: PREGABALIN 25 MG CAP PO ×2 (08:44→20:58)
[2018-01-07] MEDS: DOCUSATE SODIUM 100 MG CAP PO ×2 (08:44→20:58)
[2018-01-07] MEDS: ASCORBIC ACID 500 MG TAB PO ×2 (08:44→20:58)
[2018-01-07] MEDS: ZINC SULFATE 220 MG CAP PO (08:44)
[2018-01-07] MEDS: BUSPIRONE 5 MG TAB PO ×2 (08:44→20:58)
[2018-01-07] MEDS: FOLIC ACID 1 MG TAB PO (08:44)
[2018-01-07] MEDS: SENNA TAB PO ×2 (08:44→20:58)
[2018-01-07] MEDS: ESCITALOPRAM 10 MG TAB PO (08:44)
[2018-01-07] MEDS: ONDANSETRON 4 MG TAB PO (18:41)
[2018-01-07] MEDS: ATORVASTATIN 40 MG TAB PO (20:58)
[2018-01-08] MEDS: ACCU-CHEK XX (02:00)
[2018-01-08] MEDS: ACETAMINOPHEN 325 MG TAB PO (04:10)
[2018-01-08] MEDS: PANTOPRAZOLE (EC) 40 MG TAB PO (05:33)
[2018-01-08] MEDS: DEXAMETHASONE 1 MG TAB PO ×4 (05:33→20:32)
[2018-01-08] MEDS: NAPROXEN 500 MG TAB PO ×2 (05:35→19:42)
[2018-01-08] MEDS ORDERED: morphine 2 MG INJ IM (05:50)
[2018-01-08] MEDS: PREGABALIN 25 MG CAP PO ×2 (06:29→20:31)
[2018-01-08] MEDS: LIDOCAINE 5% PATCH TD (06:44)
[2018-01-08] MEDS: INSULIN ASPART [NOVOLOG] 3 ML PEN SC ×7 (07:35→20:33)
[2018-01-08] MEDS: INSULIN GLARGINE [LANtus] 3 ML PEN SC (09:50)
[2018-01-08] MEDS: LEVETIRACETAM (100 MG/ML) 5ML CUP PO ×2 (09:52→20:31)
[2018-01-08] MEDS: ASCORBIC ACID 500 MG TAB PO ×2 (09:53→20:31)
[2018-01-08] MEDS: SENNA TAB PO ×2 (09:53→20:31)
[2018-01-08] MEDS: ESCITALOPRAM 10 MG TAB PO (09:53)
[2018-01-08] MEDS: ZINC SULFATE 220 MG CAP PO (09:53)
[2018-01-08] MEDS: BUSPIRONE 5 MG TAB PO ×2 (09:53→20:32)
[2018-01-08] MEDS: FOLIC ACID 1 MG TAB PO (09:53)
[2018-01-08] MEDS: DOCUSATE SODIUM 100 MG CAP PO ×2 (09:53→20:32)
[2018-01-08] MEDS: MULTIVITAMINS THERAPEUTIC TAB PO (09:53)
[2018-01-08] MEDS: COLLAGENASE 5 GM (UD JAR) TOP (09:54)
[2018-01-08] MEDS: CLOTRIMAZOLE 1% 30 GM CR TOP (09:54)
[2018-01-08] MEDS: CLOBETASOL 0.05% 15 GM CR TOP ×2 (09:54→20:33)
[2018-01-08] MEDS: BACLOFEN 10 MG TAB PO ×2 (10:52→20:31)
[2018-01-08] MEDS: HYDROCODONE/APAP (5/325) TAB PO (10:52)
[2018-01-08] MEDS: ATORVASTATIN 40 MG TAB PO (20:31)
[2018-01-09] MEDS: ACCU-CHEK XX (02:00)
[2018-01-09] MEDS: NAPROXEN 500 MG TAB PO (04:03)
[2018-01-09] MEDS: DEXAMETHASONE 1 MG TAB PO (05:51)
[2018-01-09] MEDS: PANTOPRAZOLE (EC) 40 MG TAB PO (05:51)
[2018-01-09] MEDS ORDERED: ALBUTEROL/IPRATROPIUM (NEB) 3 ML AMP HHN ×3 (07:30→11:30)
[2018-01-09] MEDS: INSULIN ASPART [NOVOLOG] 3 ML PEN SC ×2 (07:35)
[2018-01-09 08:30] LABS: AADO2 Arterial 79.8 mmHg (7.0-24.0); Arterial Base Excess -3.2 mmol/L (-3.0-3); Arterial Blood Gas Oxygen Sat 95.4 mmHG (95.0-100.0); Arterial COHb 0.4 % (0.0-3.0); Arterial Fraction of Oxyhgb 94.8 % (93.0-99.0); Arterial HCO3 19.6 mmol/L (22.0-26.0); Arterial MetHb 0.2 % (0.0-1.5); Arterial Total Hemglobin 12.4 g/dl (12.0-18.0); Arterial pCO2 28.7 mmhg (35-45); MODE NASAL CANNULA; Site LB
[2018-01-09] MEDS: SOD CHLORIDE 0.9% 500 ML IV ×2 (08:30)
[2018-01-09 08:47] LABS: WHITE BLOOD COUNT 14.2 10^3/ul (4.8-10.8)
[2018-01-09 08:47] LABS: ABNORMAL IP MESSAGE 1; HEMATOCRIT 35.6 % (42.0-52.0); HEMOGLOBIN 11.5 g/dl (14.0-18.0); MEAN CORPUSCULAR HEMOGLOBIN 29.9 pg (29.0-33.0); MEAN CORPUSCULAR HGB CONC 32.3 g/dl (32.0-37.0); MEAN CORPUSCULAR VOLUME 92.5 fl (82.0-101.0); MEAN PLATELET VOLUME 10.5 fl (7.4-10.4); PLATELET COUNT 123 10^3/UL (140-415); POSITIVE DIFF @See below; RED BLOOD COUNT 3.85 10^6/ul (4.70-6.10); RED CELL DISTRIBUTION WIDTH 14.8 % (11.5-14.5)
[2018-01-09 08:51] LABS: ADD MAN DIFF? YES
[2018-01-09 08:53] LABS: ALANINE AMINOTRANSFERASE 59 IU/L (13-69); ALBUMIN/GLOBULIN RATIO 1.11; ALKALINE PHOSPHATASE 92 IU/L (42-121); ANION GAP 18 (8-16); ASPARTATE AMINO TRANSFERASE 39 IU/L (15-46); BILIRUBIN,INDIRECT 0.4 mg/dl (0-1.1); BILIRUBIN,TOTAL 0.4 mg/dl (0.2-1.3); BLOOD UREA NITROGEN 31 mg/dl (7-20); CALCIUM 8.9 mg/dl (8.4-10.2); CARBON DIOXIDE 25 mmol/L (21-31); CHLORIDE 105 mmol/L (97-110); CREATININE 1.01 mg/dl (0.61-1.24); GLUCOSE 142 mg/dl (70-220); POTASSIUM 4.2 mmol/L (3.5-5.1); SODIUM 144 mmol/L (135-144); TOTAL PROTEIN 5.7 g/dl (6.1-8.1)
[2018-01-09] MEDS ORDERED: hydrALAzine 20 MG INJ IV ×2 (10:25→11:30)
[2018-01-09] MEDS ORDERED: NACL 0.9% 3 ML SYG IV ×2 (10:25→11:30)
[2018-01-09] MEDS ORDERED: MAGNESIUM HYDROXIDE 30ML CUP PO ×2 (10:25→11:30)
[2018-01-09 10:26] LABS: BAND NEUTROPHILS #M 4.4 10^3/ul (0.0-0.6); BAND NEUTROPHILS % (M) 31 % (0-4); LYMPHOCYTES #M 0.2 10^3/ul (0.8-2.9); LYMPHOCYTES % (M) 2 % (15-51); MONOCYTE #M 0.5 10^3/ul (0.3-0.9); MONOCYTES % (M) 4 % (0-11); PLATELET ESTIMATE DECREASED; POIKILOCYTOSIS 1+ (0-0); POLYCHROMASIA 3+ (0-0); SEG NEUT #M 9.6 10^3/ul (1.6-7.5); SEGMENTED NEUTROPHILS (M) % 63 % (39-77); SMUDGE%M 1 % (0-0)
[2018-01-09] MEDS ORDERED: NITROGLYCERIN (SL) 0.4 MG TAB SL (11:30)
[2018-01-09] MEDS ORDERED: HYDROCODONE/APAP (5/325) TAB PO (11:30)
[2018-01-09] MEDS ORDERED: DOCUSATE SODIUM 100 MG CAP PO (11:30)
[2018-01-09] MEDS ORDERED: ONDANSETRON 4 MG INJ IV (11:30)
[2018-01-09] MEDS ORDERED: morphine 2 MG INJ IV (11:30)
[2018-01-09] MEDS ORDERED: NA PHOSPHATE/BIPHOS 133 ML ENEMA PR (11:30)
[2018-01-09] MEDS ORDERED: LORAZEPAM 2 MG INJ IV (11:30)
[2018-01-09] MEDS ORDERED: ACETAMINOPHEN 325 MG TAB PO (11:30)
[2018-01-09] MEDS ORDERED: LEVOFLOXACIN 750MG/D5W (PMX) 150 ML IVPB (12:00)
[2018-01-09 12:42] LABS: FREE T4 (FREE THYROXINE) 1.28 ng/dl (0.78-2.44)
[2018-01-09] MEDS ORDERED: INSULIN ASPART [NOVOLOG] 3 ML PEN SC ×2 (13:00)
[2018-01-09] MEDS ORDERED: HEPARIN 5,000 UNIT/0.5 ML VIAL SC ×2 (21:00)
[2018-01-10] MEDS ORDERED: ACCU-CHEK XX (02:00)
[2018-01-10] MEDS ORDERED: PANTOPRAZOLE 40 MG INJ IV (06:00)
== END 2018-01-09 10:25 | disposition short-term general hospital (02) | DRG 54 ==
LOC: VRC 10:15
PROC: F07Z5ZZ Bed Mobility Treatment (ICD-10-PCS; principal; 2017-12-31)
PROC: F08Z2ZZ Grooming/Personal Hygiene Treatment (ICD-10-PCS; 2017-12-31)
PROC: F06Z6ZZ Communicative/Cognitive Integration Skills Treatment (ICD-10-PCS; 2017-12-31)
DX: C71.9 Malignant neoplasm of brain, unspecified (principal); G92 Toxic encephalopathy; N39.0 Urinary tract infection, site not specified; I10 Essential (primary) hypertension; E78.5 Hyperlipidemia, unspecified; S22.39XD Fracture of one rib, unspecified side, subsequent encounter for fracture with routine healing; L89.629 Pressure ulcer of left heel, unspecified stage; L89.619 Pressure ulcer of right heel, unspecified stage; B35.1 Tinea unguium; E11.622 Type 2 diabetes mellitus with other skin ulcer; K21.9 Gastro-esophageal reflux disease without esophagitis; Z79.4 Long term (current) use of insulin
CPT/HCPCS: 36600; 71045; 80053; 81001; 82803; 82962; 83036; 84439; 85025; 87081; 87086; 92507; 92523; 92526; 92610; 94664; 97110; 97112; 97116; 97163; 97167; 97530; 97535; 97542

== ENCOUNTER 2018-01-09 09:30 | Inpatient (IN) | payer MEDICARE, BC ==
[2018-01-09] MEDS ORDERED: INSULIN ASPART [NOVOLOG] 3 ML PEN SC ×3 (11:50→17:55)
[2018-01-09] MEDS ORDERED: MAGNESIUM HYDROXIDE 30ML CUP PO ×2 (12:00→12:30)
[2018-01-09] MEDS ORDERED: ALBUTEROL/IPRATROPIUM (NEB) 3 ML AMP HHN ×2 (12:00→12:30)
[2018-01-09] MEDS ORDERED: NA PHOSPHATE/BIPHOS 133 ML ENEMA PR ×2 (12:00→12:30)
[2018-01-09] MEDS ORDERED: DOCUSATE SODIUM 100 MG CAP PO ×2 (12:00→12:30)
[2018-01-09] MEDS ORDERED: NITROGLYCERIN (SL) 0.4 MG TAB SL ×2 (12:00→12:30)
[2018-01-09] MEDS ORDERED: PENDING SANTYL ORDER FOR WOUND CARE XX (12:00)
[2018-01-09] MEDS ORDERED: hydrALAzine 20 MG INJ IV ×2 (12:00→12:30)
[2018-01-09] MEDS ORDERED: ACETAMINOPHEN 325 MG TAB PO (12:00)
[2018-01-09] MEDS ORDERED: LORAZEPAM 2 MG INJ IV (12:00)
[2018-01-09] MEDS ORDERED: HYDROCODONE/APAP (5/325) TAB PO (12:30)
[2018-01-09] MEDS ORDERED: ONDANSETRON 4 MG INJ IV (12:30)
[2018-01-09] MEDS ORDERED: NACL 0.9% 3 ML SYG IV (12:30)
[2018-01-09] MEDS: ALBUTEROL/IPRATROPIUM (NEB) 3 ML AMP HHN ×2 (13:00→20:18)
[2018-01-09] MEDS: LEVOFLOXACIN 750MG/D5W (PMX) 150 ML IVPB (13:07)
[2018-01-09] MEDS: ACETAMINOPHEN 325 MG TAB PO (13:08)
[2018-01-09] MEDS: INSULIN ASPART [NOVOLOG] 3 ML PEN SC ×4 (13:40→22:26)
[2018-01-09 14:46] LABS: FREE T4 (FREE THYROXINE) 1.41 ng/dl (0.78-2.44)
[2018-01-09] MEDS: NAPROXEN 500 MG TAB PO (16:33)
[2018-01-09] MEDS: ALBUTEROL 0.083% (NEB) 2.5 MG/3 ML AMP HHN (20:00)
[2018-01-09] MEDS ORDERED: HEPARIN 5,000 UNIT/0.5 ML VIAL SC (21:00)
[2018-01-09] MEDS: PREGABALIN 25 MG CAP PO (21:28)
[2018-01-09] MEDS: ATORVASTATIN 40 MG TAB PO (21:28)
[2018-01-09] MEDS: SENNA TAB PO (21:29)
[2018-01-09] MEDS: LEVETIRACETAM 750 MG TAB PO (21:29)
[2018-01-09] MEDS: DEXAMETHASONE 1 MG TAB PO (21:30)
[2018-01-09] MEDS: ASCORBIC ACID 500 MG TAB PO (21:30)
[2018-01-09] MEDS: CLOBETASOL 0.05% 15 GM CR TOP (21:55)
[2018-01-09] MEDS: HEPARIN 5,000 UNIT/0.5 ML VIAL SC (21:57)
[2018-01-10] MEDS: INSULIN ASPART [NOVOLOG] 3 ML PEN SC ×9 (01:00→22:30)
[2018-01-10] MEDS: NAPROXEN 500 MG TAB PO ×2 (01:07→10:44)
[2018-01-10] MEDS: ALBUTEROL/IPRATROPIUM (NEB) 3 ML AMP HHN ×6 (01:12→21:52)
[2018-01-10] MEDS: ALBUTEROL 0.083% (NEB) 2.5 MG/3 ML AMP HHN ×2 (01:49→08:52)
[2018-01-10] MEDS ORDERED: ACCU-CHEK XX ×2 (02:00)
[2018-01-10] MEDS: ACETAMINOPHEN 650MG/20.3ML CUP PO ×2 (04:37→06:21)
[2018-01-10] MEDS ORDERED: PANTOPRAZOLE 40 MG INJ IV (06:00)
[2018-01-10] MEDS: PANTOPRAZOLE (EC) 40 MG TAB PO (06:21)
[2018-01-10 06:23] LABS: HEMOGLOBIN A1C 6.8 % (0-5.9)
[2018-01-10 06:29] LABS: HDL CHOLESTEROL 12 mg/dl (31-75); LDL CHOLESTEROL,CALCULATED 18 mg/dl; TRIGLYCERIDES 151 mg/dl (0-149)
[2018-01-10 06:29] LABS: CHOLESTEROL 60 mg/dl (100-200)
[2018-01-10] MEDS ORDERED: INSULIN ASPART [NOVOLOG] 3 ML PEN SC (07:55)
[2018-01-10] MEDS: INSULIN GLARGINE [LANtus] 3 ML PEN SC (08:00)
[2018-01-10] MEDS: DEXTROSE 5%-0.45% NACL 1,000 ML IV (08:02)
[2018-01-10] MEDS: CLOTRIMAZOLE 1% 30 GM CR TOP (08:46)
[2018-01-10] MEDS: COLLAGENASE 5 GM (UD JAR) TOP (08:46)
[2018-01-10] MEDS: MULTIVITAMINS THERAPEUTIC TAB PO (08:47)
[2018-01-10] MEDS: DEXAMETHASONE 1 MG TAB PO ×2 (08:47→22:15)
[2018-01-10] MEDS: ASCORBIC ACID 500 MG TAB PO ×2 (08:47→22:17)
[2018-01-10] MEDS: ZINC SULFATE 220 MG CAP PO (08:47)
[2018-01-10] MEDS: LEVETIRACETAM 750 MG TAB PO ×2 (08:47→22:16)
[2018-01-10] MEDS: SENNA TAB PO ×2 (08:47→22:15)
[2018-01-10] MEDS: PREGABALIN 25 MG CAP PO ×2 (08:47→22:16)
[2018-01-10] MEDS: HEPARIN 5,000 UNIT/0.5 ML VIAL SC ×2 (08:53→22:38)
[2018-01-10] MEDS: FOLIC ACID 1 MG TAB PO (09:01)
[2018-01-10] MEDS: ESCITALOPRAM 10 MG TAB PO (09:01)
[2018-01-10] MEDS: CLOBETASOL 0.05% 15 GM CR TOP ×2 (09:02→22:17)
[2018-01-10 12:12] LABS: ADD MAN DIFF? NO
[2018-01-10 12:13] LABS: WHITE BLOOD COUNT 8.4 10^3/ul (4.8-10.8)
[2018-01-10 12:13] LABS: ABNORMAL IP MESSAGE 1; BASOPHILS % 0.2 % (0.0-2.0); HEMATOCRIT 31.4 % (42.0-52.0); HEMOGLOBIN 10.7 g/dl (14.0-18.0); LYMPHOCYTES # 0.2 10^3/ul (0.8-2.9); LYMPHOCYTES % 2.5 % (15.0-51.0); MEAN CORPUSCULAR HEMOGLOBIN 30.6 pg (29.0-33.0); MEAN CORPUSCULAR HGB CONC 34.1 g/dl (32.0-37.0); MEAN CORPUSCULAR VOLUME 89.7 fl (82.0-101.0); MEAN PLATELET VOLUME 10.9 fl (7.4-10.4); MONOCYTE # 0.7 10^3/ul (0.3-0.9); MONOCYTES % 7.7 % (0.0-11.0); NEUTROPHIL # 7.5 10^3/ul (1.6-7.5); NEUTROPHILS % 89.4 % (39.0-77.0); PLATELET COUNT 112 10^3/UL (140-415); POSITIVE DIFF @See below; RED CELL DISTRIBUTION WIDTH 14.6 % (11.5-14.5)
[2018-01-10] MEDS: LEVOFLOXACIN 750MG/D5W (PMX) 150 ML IVPB (12:24)
[2018-01-10 12:33] LABS: ANION GAP 16 (8-16); BLOOD UREA NITROGEN 30 mg/dl (7-20); CALCIUM 8.7 mg/dl (8.4-10.2); CARBON DIOXIDE 19 mmol/L (21-31); CHLORIDE 109 mmol/L (97-110); CREATININE 0.75 mg/dl (0.61-1.24); GLUCOSE 279 mg/dl (70-220); POTASSIUM 3.7 mmol/L (3.5-5.1); SODIUM 140 mmol/L (135-144)
[2018-01-10] MEDS: ATORVASTATIN 40 MG TAB PO (22:16)
[2018-01-10] MEDS: ONDANSETRON 4 MG TAB PO (22:50)
[2018-01-11] MEDS: INSULIN ASPART [NOVOLOG] 3 ML PEN SC ×9 (01:00→21:00)
[2018-01-11] MEDS: ALBUTEROL/IPRATROPIUM (NEB) 3 ML AMP HHN ×6 (01:20→21:00)
[2018-01-11] MEDS: PANTOPRAZOLE (EC) 40 MG TAB PO (05:02)
[2018-01-11] MEDS: SENNA TAB PO ×2 (08:46→20:49)
[2018-01-11] MEDS: MULTIVITAMINS THERAPEUTIC TAB PO (08:46)
[2018-01-11] MEDS: PREGABALIN 25 MG CAP PO ×2 (08:46→20:49)
[2018-01-11] MEDS: DEXAMETHASONE 1 MG TAB PO ×2 (08:46→21:00)
[2018-01-11] MEDS: ESCITALOPRAM 10 MG TAB PO (08:46)
[2018-01-11] MEDS: ZINC SULFATE 220 MG CAP PO (08:46)
[2018-01-11] MEDS: LEVETIRACETAM 750 MG TAB PO ×2 (08:46→20:49)
[2018-01-11] MEDS: FOLIC ACID 1 MG TAB PO (08:46)
[2018-01-11] MEDS: ASCORBIC ACID 500 MG TAB PO ×2 (08:47→20:49)
[2018-01-11] MEDS: CLOBETASOL 0.05% 15 GM CR TOP ×2 (08:47→21:00)
[2018-01-11] MEDS: COLLAGENASE 5 GM (UD JAR) TOP (08:47)
[2018-01-11] MEDS: CLOTRIMAZOLE 1% 30 GM CR TOP (08:47)
[2018-01-11] MEDS: INSULIN GLARGINE [LANtus] 3 ML PEN SC (08:50)
[2018-01-11] MEDS: HEPARIN 5,000 UNIT/0.5 ML VIAL SC ×2 (08:55→20:57)
[2018-01-11 11:20] LABS: ADD UMIC NO; UR ASCORBIC ACID 40 mg/dL (NEGATIVE); UR BILIRUBIN (Dip) NEGATIVE (NEGATIVE); UR BLOOD (Dip) NEGATIVE (NEGATIVE); UR CLARITY CLEAR (CLEAR); UR COLOR AMBER (YELLOW); UR GLUCOSE (Dip) NEGATIVE (NEGATIVE); UR KETONES (Dip) NEGATIVE (NEGATIVE); UR LEUKOCYTE ESTERASE (Dip) NEGATIVE Leu/ul (NEGATIVE); UR NITRITE (Dip) NEGATIVE (NEGATIVE); UR SPECIFIC GRAVITY (Dip) 1.029 (1.003-1.030); UR TOTAL PROTEIN (Dip) NEGATIVE (NEGATIVE); UR UROBILINOGEN (Dip) 1+ mg/dL (NEGATIVE)
[2018-01-11] MEDS: LEVOFLOXACIN 750MG/D5W (PMX) 150 ML IVPB (12:17)
[2018-01-11] MEDS: LIDOCAINE 5% PATCH TD (17:38)
[2018-01-11] MEDS: ATORVASTATIN 40 MG TAB PO (20:49)
[2018-01-12] MEDS: ALBUTEROL/IPRATROPIUM (NEB) 3 ML AMP HHN ×6 (00:24→20:21)
[2018-01-12] MEDS: PANTOPRAZOLE (EC) 40 MG TAB PO (05:25)
[2018-01-12] MEDS: LEVETIRACETAM 750 MG TAB PO ×2 (08:18→21:28)
[2018-01-12] MEDS: ZINC SULFATE 220 MG CAP PO (08:18)
[2018-01-12] MEDS: ASCORBIC ACID 500 MG TAB PO ×2 (08:18→21:29)
[2018-01-12] MEDS: PREGABALIN 25 MG CAP PO ×2 (08:18→09:51)
[2018-01-12] MEDS: MULTIVITAMINS THERAPEUTIC TAB PO (08:19)
[2018-01-12] MEDS: SENNA TAB PO ×2 (08:19→21:28)
[2018-01-12] MEDS: FOLIC ACID 1 MG TAB PO (08:19)
[2018-01-12] MEDS: ESCITALOPRAM 10 MG TAB PO (08:19)
[2018-01-12] MEDS: COLLAGENASE 5 GM (UD JAR) TOP (08:20)
[2018-01-12] MEDS: CLOBETASOL 0.05% 15 GM CR TOP ×2 (08:20→21:57)
[2018-01-12] MEDS: CLOTRIMAZOLE 1% 30 GM CR TOP (08:21)
[2018-01-12] MEDS: LIDOCAINE 5% PATCH TD (08:24)
[2018-01-12] MEDS: DEXAMETHASONE 1 MG TAB PO ×2 (08:24→21:28)
[2018-01-12] MEDS: INSULIN ASPART [NOVOLOG] 3 ML PEN SC ×7 (08:29→21:33)
[2018-01-12] MEDS: INSULIN GLARGINE [LANtus] 3 ML PEN SC (08:30)
[2018-01-12] MEDS: HEPARIN 5,000 UNIT/0.5 ML VIAL SC ×2 (08:31→21:55)
[2018-01-12] MEDS: ATORVASTATIN 40 MG TAB PO (21:28)
[2018-01-12] MEDS: PREGABALIN 50 MG CAP PO (21:29)
[2018-01-13] MEDS: ALBUTEROL/IPRATROPIUM (NEB) 3 ML AMP HHN ×6 (01:20→20:54)
[2018-01-13] MEDS: PANTOPRAZOLE (EC) 40 MG TAB PO (05:17)
[2018-01-13] MEDS: INSULIN GLARGINE [LANtus] 3 ML PEN SC (07:53)
[2018-01-13] MEDS: INSULIN ASPART [NOVOLOG] 3 ML PEN SC ×7 (07:53→21:00)
[2018-01-13] MEDS: MULTIVITAMINS THERAPEUTIC TAB PO (08:21)
[2018-01-13] MEDS: COLLAGENASE 5 GM (UD JAR) TOP (08:21)
[2018-01-13] MEDS: SENNA TAB PO ×2 (08:21→21:27)
[2018-01-13] MEDS: ESCITALOPRAM 10 MG TAB PO (08:21)
[2018-01-13] MEDS: CLOTRIMAZOLE 1% 30 GM CR TOP (08:21)
[2018-01-13] MEDS: CLOBETASOL 0.05% 15 GM CR TOP ×2 (08:21→21:42)
[2018-01-13] MEDS: LIDOCAINE 5% PATCH TD (08:21)
[2018-01-13] MEDS: ZINC SULFATE 220 MG CAP PO (08:21)
[2018-01-13] MEDS: DEXAMETHASONE 1 MG TAB PO ×2 (08:22→21:27)
[2018-01-13] MEDS: ASCORBIC ACID 500 MG TAB PO ×2 (08:22→21:28)
[2018-01-13] MEDS: FOLIC ACID 1 MG TAB PO (08:22)
[2018-01-13] MEDS: LEVETIRACETAM 750 MG TAB PO ×2 (08:22→21:27)
[2018-01-13] MEDS: PREGABALIN 50 MG CAP PO ×2 (08:24→21:28)
[2018-01-13] MEDS: HEPARIN 5,000 UNIT/0.5 ML VIAL SC ×2 (09:03→21:32)
[2018-01-13 17:04] LABS: AMMONIA 10 umol/l (9-30)
[2018-01-13 18:39] LABS: Allen Test ACCEPTAB; Arterial Base Excess -0.1 mmol/L (-3.0-3); Arterial COHb 0.5 % (0.0-3.0); Arterial Fraction of Oxyhgb 94.2 % (93.0-99.0); Arterial HCO3 21.4 mmol/L (22.0-26.0); Arterial MetHb 0.3 % (0.0-1.5); Arterial Total Hemglobin 14.1 g/dl (12.0-18.0); Arterial pCO2 27.1 mmhg (35-45); MODE NASAL CANNULA; Site Right Radial
[2018-01-13] MEDS: ATORVASTATIN 40 MG TAB PO (21:27)
[2018-01-13] MEDS ORDERED: IOHEXOL 100 ML (22:53)
[2018-01-13] MEDS ORDERED: SOD CHLORIDE 0.9% 100 ML (22:53)
[2018-01-14] MEDS: ALBUTEROL/IPRATROPIUM (NEB) 3 ML AMP HHN ×6 (00:27→20:01)
[2018-01-14] MEDS: PANTOPRAZOLE (EC) 40 MG TAB PO (05:32)
[2018-01-14 06:42] LABS: INR 1.13; PROTIME 14.7 Sec (11.9-14.9); PT RATIO 1.1
[2018-01-14 06:43] LABS: PARTIAL THROMBOPLASTIN TIME 33.2 Sec (25.0-35.0)
[2018-01-14 06:59] LABS: ALANINE AMINOTRANSFERASE 39 IU/L (13-69); ALBUMIN 2.9 g/dl (3.3-4.9); ALKALINE PHOSPHATASE 129 IU/L (42-121); ANION GAP 16 (8-16); ASPARTATE AMINO TRANSFERASE 29 IU/L (15-46); BILIRUBIN,INDIRECT 1.1 mg/dl (0-1.1); BILIRUBIN,TOTAL 1.1 mg/dl (0.2-1.3); BLOOD UREA NITROGEN 33 mg/dl (7-20); CARBON DIOXIDE 23 mmol/L (21-31); CHLORIDE 105 mmol/L (97-110); CREATININE 0.78 mg/dl (0.61-1.24); GLUCOSE 249 mg/dl (70-220); MAGNESIUM 1.8 mg/dl (1.7-2.5); PHOSPHORUS 4.4 mg/dl (2.5-4.9); SODIUM 140 mmol/L (135-144); TOTAL PROTEIN 6.1 g/dl (6.1-8.1)
[2018-01-14] MEDS: INSULIN ASPART [NOVOLOG] 3 ML PEN SC ×7 (08:13→21:00)
[2018-01-14] MEDS: COLLAGENASE 5 GM (UD JAR) TOP (08:15)
[2018-01-14] MEDS: INSULIN GLARGINE [LANtus] 3 ML PEN SC (08:15)
[2018-01-14] MEDS: LIDOCAINE 5% PATCH TD (08:15)
[2018-01-14] MEDS: SENNA TAB PO ×2 (08:16→21:06)
[2018-01-14] MEDS: FOLIC ACID 1 MG TAB PO (08:16)
[2018-01-14] MEDS: MULTIVITAMINS THERAPEUTIC TAB PO (08:16)
[2018-01-14] MEDS: PREGABALIN 50 MG CAP PO ×2 (08:16→21:06)
[2018-01-14] MEDS: ASCORBIC ACID 500 MG TAB PO ×2 (08:16→21:06)
[2018-01-14] MEDS: ESCITALOPRAM 10 MG TAB PO (08:16)
[2018-01-14] MEDS: LEVETIRACETAM 750 MG TAB PO ×2 (08:16→21:10)
[2018-01-14] MEDS: ZINC SULFATE 220 MG CAP PO (08:17)
[2018-01-14] MEDS: CLOBETASOL 0.05% 15 GM CR TOP ×2 (08:17→21:11)
[2018-01-14] MEDS: DEXAMETHASONE 1 MG TAB PO ×2 (08:26→21:07)
[2018-01-14] MEDS: HEPARIN 5,000 UNIT/0.5 ML VIAL SC (09:00)
[2018-01-14] MEDS: ENOXAPARIN 80 MG/0.8 ML SYG SC ×2 (10:50→21:21)
[2018-01-14] MEDS: CLOTRIMAZOLE 1% 30 GM CR TOP (10:51)
[2018-01-14] MEDS: ATORVASTATIN 40 MG TAB PO (21:06)
[2018-01-14] MEDS: ONDANSETRON 4 MG INJ IV (21:11)
[2018-01-14] MEDS: morphine 2 MG INJ IV (22:32)
[2018-01-14] MEDS: LORAZEPAM 2 MG INJ IV (23:42)
[2018-01-15] MEDS: ALBUTEROL/IPRATROPIUM (NEB) 3 ML AMP HHN ×6 (00:46→20:45)
[2018-01-15] MEDS: PANTOPRAZOLE (EC) 40 MG TAB PO (06:00)
[2018-01-15] MEDS: ESCITALOPRAM 10 MG TAB PO (08:38)
[2018-01-15] MEDS: PREGABALIN 50 MG CAP PO ×2 (08:38→20:13)
[2018-01-15] MEDS: DEXAMETHASONE 1 MG TAB PO ×2 (08:38→20:13)
[2018-01-15] MEDS: LEVETIRACETAM 750 MG TAB PO ×2 (08:38→20:12)
[2018-01-15] MEDS: SENNA TAB PO ×2 (08:38→20:12)
[2018-01-15] MEDS: ZINC SULFATE 220 MG CAP PO (08:38)
[2018-01-15] MEDS: MULTIVITAMINS THERAPEUTIC TAB PO (08:38)
[2018-01-15] MEDS: FOLIC ACID 1 MG TAB PO (08:41)
[2018-01-15] MEDS: CLOBETASOL 0.05% 15 GM CR TOP (08:41)
[2018-01-15] MEDS: LIDOCAINE 5% PATCH TD (08:41)
[2018-01-15] MEDS: CLOTRIMAZOLE 1% 30 GM CR TOP (08:42)
[2018-01-15] MEDS: COLLAGENASE 5 GM (UD JAR) TOP (08:42)
[2018-01-15] MEDS: ENOXAPARIN 80 MG/0.8 ML SYG SC ×2 (08:43→20:14)
[2018-01-15] MEDS: INSULIN ASPART [NOVOLOG] 3 ML PEN SC ×7 (08:45→20:47)
[2018-01-15] MEDS: INSULIN GLARGINE [LANtus] 3 ML PEN SC (08:48)
[2018-01-15] MEDS: ASCORBIC ACID 500 MG TAB PO ×2 (08:48→20:12)
[2018-01-15] MEDS: ATORVASTATIN 40 MG TAB PO (20:13)
[2018-01-15] MEDS: morphine 2 MG INJ IV (20:22)
== END 2018-01-15 21:10 | disposition hospice, home (50) | DRG 54 ==
LOC: TEL 09:30 → MS2 01-13 20:50
PROVIDERS: Physical Medicine & Rehabilitation
DX: C71.9 Malignant neoplasm of brain, unspecified (principal); G92 Toxic encephalopathy; I26.92 Saddle embolus of pulmonary artery without acute cor pulmonale; I95.9 Hypotension, unspecified; I95.2 Hypotension due to drugs; E11.9 Type 2 diabetes mellitus without complications; T40.2X5A Adverse effect of other opioids, initial encounter; Y92.230 Patient room in hospital as the place of occurrence of the external cause; Z66 Do not resuscitate; Z79.4 Long term (current) use of insulin; Z86.711 Personal history of pulmonary embolism
CPT/HCPCS: 36600; 70553; 71275; 72131; 80048; 80053; 80061; 81003; 82140; 82803; 82962; 83036; 83735; 84100; 84439; 85025; 85610; 85730; 87086; 92526; 92610; 93005; 94640; 97110; 97163; 97166; 97530; 97535